=== PATIENT | female | born 1940 | race Two or more races ===

== ENCOUNTER 2017-12-29 07:12 | Outpatient (CLI) | payer OTHER ==
[~2017-12-29 07:12] MED LIST: COMADIN; COZAAR50 MG; NORFLEX100MG PO; PERCOGESIC 3251 EACH PO; ZANAFLEX4 M1 PO
== END 2017-12-29 07:19 | disposition home or self-care (01) ==
LOC: NUCLEAR 07:12
DX: I20.0 Unstable angina (principal); I11.9 Hypertensive heart disease without heart failure; E78.2 Mixed hyperlipidemia
CPT/HCPCS: 78452; 93017; A9500

== ENCOUNTER 2020-11-30 14:28 | Outpatient (CLI) | payer OTHER | END 2020-11-30 14:36 | disposition home or self-care (01) | LOC: LAB 14:28 | PROVIDERS: ATTEND Psychiatry & Neurology Psychiatry | DX: L51.8 Other erythema multiforme (principal); L42 Pityriasis rosea ==

== ENCOUNTER 2021-12-04 14:24 | Outpatient (CLI) | payer OTHER | END 2021-12-04 14:26 | disposition home or self-care (01) | LOC: NUCLEAR 14:24 | PROVIDERS: ATTEND Specialist | DX: I27.20 Pulmonary hypertension, unspecified (principal) ==

== ENCOUNTER 2021-12-04 15:37 | Outpatient (CLI) | payer OTHER | END 2021-12-04 15:44 | disposition home or self-care (01) | LOC: RAD 15:37 | PROVIDERS: ATTEND Specialist | DX: R05.3 Chronic cough (principal) ==

== ENCOUNTER 2023-04-30 10:16 | Inpatient (IN) | payer OTHER ==
[~2023-04-30] VITALS: Ht 177.8 cm; Wt 54.4 kg
[2023-04-30] MEDS ORDERED: WARFARIN SODIUM2 MG PO (10:38)
[2023-05-03] MEDS ORDERED: POLY119PG PO (18:03)
[2023-05-03] MEDS ORDERED: MAGNESIUM400 MG PO (18:03)
== END 2023-05-04 07:13 | disposition home or self-care (01) | DRG 389 ==
LOC: ER 10:16 → SURH 19:27
PROVIDERS: Emergency Medicine; ADMIT Internal Medicine; ATTEND Internal Medicine
PROC: BW21YZZ Computerized Tomography (CT Scan) of Abdomen and Pelvis using Other Contrast (ICD-10-PCS; principal; 2023-04-30)
DX: K56.699 Other intestinal obstruction unspecified as to partial versus complete obstruction (principal); D68.62 Lupus anticoagulant syndrome; I10 Essential (primary) hypertension; Z79.01 Long term (current) use of anticoagulants

== ENCOUNTER → 2023-05-26 | Outpatient (CLI) | payer OTHER ==
[~2023-05-26] MED LIST changes: +MAGNESIUM400 MG PO; +POLY119PG PO; +WARFARIN SODIUM2 MG PO
== END | disposition home or self-care (01) ==
LOC: RX STUDY 07:39
DX: K56.609 Unspecified intestinal obstruction, unspecified as to partial versus complete obstruction (principal)

== ENCOUNTER 2024-12-13 11:39 | Emergency (ER) | payer OTHER ==
[~2024-12-13] VITALS: Ht 152.4 cm; Wt 46.7 kg
[2024-12-13] MEDS ORDERED: XARELTO10 MG (11:45)
[2024-12-13] MEDS ORDERED: NEURONTIN300 MG (11:46)
[2024-12-13] MEDS ORDERED: FAMOTIDINE/PF 20 MG in 0.9 % SODIUM CHLORIDE 8 ML IV PUSH STA (12:38)
[2024-12-13] MEDS ORDERED: ONDANSETRON HCL 2 MG/ML VIAL IV ONE (12:45)
[2024-12-13] MEDS ORDERED: KETOROLAC TROMETHAMINE 30 MG VIAL IV ONE (12:45)
[2024-12-13] MEDS ORDERED: 0.9 % SODIUM CHLORIDE 1,000 ML IV SCH (12:45)
[2024-12-13] MEDS ORDERED: DIPHENOXYLATE HCL/ATROPINE 1 UDTAB TABLET PO ONE (12:45)
[2024-12-13] MEDS ORDERED: KETOROLAC TROMETHAMINE 30 MG VIAL ONE (13:25)
[2024-12-13] MEDS ORDERED: FAMOTIDINE/PF 20 MG/2 ML VIAL ONE (13:25)
[2024-12-13] MEDS ORDERED: ONDANSETRON HCL 2 MG/ML VIAL ONE (13:25)
[2024-12-13 13:43] LABS: HEMATOCRIT 41.4 % (36.0-45.00); HEMOGLOBIN 14.1 g/dL (12.0-15.00); MEAN CELL VOLUME 96.2 fL (80.00-100.00); MEAN CORPUSCULAR HEMOGLOBIN 32.6 pg (27.00-32.0); MEAN CORPUSCULAR HGB CONC 33.9 g/dl (32.0-36.0); PLATELET COUNT 176 K/uL (150-450); RED BLOOD COUNT 4.31 M/uL (4.00-6.00); RED CELL DISTRIBUTION WIDTH 13.1 % (11.5-14.5)
[2024-12-13] MEDS ORDERED: METHYLPREDNISOLONE SOD SUCC 125 MG VIAL ONE (15:05)
[2024-12-13] MEDS ORDERED: WATER FOR INJ.,BACTERIOSTATIC 30 ML VIAL IJ ONE (15:06)
[2024-12-13] MEDS ORDERED: METHYLPREDNISOLONE SOD SUCC 125 MG VIAL IV ONE (15:15)
[2024-12-13 15:45] LABS: ALBUMIN 4.5 gm/dL (3.4-5.0); BILIRUBIN TOTAL 1.67 mg/dL (0.3-1.2); CREATININE SERUM 0.82 mg/dL (0.55-1.02); GFR 66.74; GLOBULINA 3.4 G/DL (2.4-3.5); POTASSIUM 4.5 mEq/L (3.5-5.1); TOTAL PROTEIN 7.9 gm/dL (6.4-8.2)
[2024-12-13] MEDS ORDERED: METRONIDAZOLE500 MG PO (16:05)
[2024-12-13] MEDS ORDERED: INTESTINEX680 M1 PO (16:05)
[2024-12-13] MEDS ORDERED: PROTONIX40 MG PO (16:05)
[2024-12-13] MEDS ORDERED: LEVSIN/SL0.125 MG SL (16:05)
[2024-12-13] MEDS ORDERED: CIPRO500 MG PO (16:05)
== END 2024-12-13 17:12 | disposition home or self-care (01) ==
LOC: ER 11:40
PROVIDERS: General Practice
DX: K52.9 Noninfective gastroenteritis and colitis, unspecified (principal); R11.2 Nausea with vomiting, unspecified; R10.32 Left lower quadrant pain; I10 Essential (primary) hypertension
CPT/HCPCS: 36415; 74176; 96365; 96366; 99284; J1885; J2405; J3490 ×2; J7030

== ENCOUNTER 2025-05-22 12:27 | Emergency (ER) | payer OTHER ==
[~2025-05-22] VITALS: Ht 165.1 cm; Wt 48.5 kg
[~2025-05-22 12:27] MED LIST changes: +CIPRO500 MG PO; +INTESTINEX680 M1 PO; +LEVSIN/SL0.125 MG SL; +METRONIDAZOLE500 MG PO; +NEURONTIN300 MG; +PROTONIX40 MG PO; +XARELTO10 MG
[2025-05-22] MEDS ORDERED: 0.9 % SODIUM CHLORIDE 1,000 ML IV SCH (13:30)
[2025-05-22 14:03] LABS: BASO % 0.2 % (0.1-1.2); EOS # 0.14 (0.04-0.54); EOS % 2.2 % (0.7-7.0); LYMPH # 1.03 (1.18-3.74); LYMPH % 16.0 % (19.3-53.1); MEAN PLATELET VOLUME 11.10 fl (9.4-12.4); MONO # 0.33 (0.24-0.82); MONO % 5.1 % (4.7-12.5); NEUT # 4.93 (1.56-6.13); NEUT % 76.3 % (34.0-71.1); RED CELL DISTRIBUTION WIDTH 12.5 % (11.6-14.4)
[2025-05-22 14:20] LABS: BUN CREA RATIO 27.0 (7.0-25.0); CREATININE SERUM 1.07 mg/dL (0.55-1.02); GFR 49.09; GLUCOSE FASTING 82.0 mg/dL (65-100); OSMOLALITY SERUM 286.0 MOSM/KG (275-295)
[2025-05-22 14:44] LABS: URINE APPEARANCE Clear; URINE BILIRRUBIN Negative (NEGATIVE); URINE BLOOD Negative; URINE COLOR Yellow; URINE GLUCOSE Negative (NEGATIVE); URINE KETONE Trace (NEGATIVE); URINE LEUKOCYTE Negative; URINE NITRATE Negative; URINE PROTEIN Negative (NEGATIVE); URINE UROBILINOGEN 0.2 E.U./dl
[2025-05-22 14:49] LABS: URINE BACTERIA 13.1 uL (0.0-1933); URINE CAST 3.22 uL (0.0-1.40); URINE EPITHELIAL CELLS 6.3 uL (0.0-38.8); URINE RBC 7.7 uL (0.0-20.8); URINE WBC 3.2 uL (0.0-23.2)
[2025-05-22] MEDS ORDERED: KETOROLAC TROMETHAMINE 30 MG VIAL IV STA (19:49)
[2025-05-22] MEDS ORDERED: KETOROLAC TROMETHAMINE 30 MG VIAL ONE (19:51)
[2025-05-22] MEDS ORDERED: HYOSCYAMINE SULFATE 0.125 MG TAB.SUBL ONE (19:51)
[2025-05-22] MEDS ORDERED: FAMOTIDINE/PF 20 MG/2 ML VIAL ONE (19:52)
[2025-05-22] MEDS ORDERED: FAMOtidine 10 MG/ML (4ML VIAL) IV PUSH STA (19:53)
[2025-05-22] MEDS ORDERED: HYOSCYAMINE SULFATE 0.125 MG TAB.SUBL SL ONE (20:00)
== END 2025-05-22 20:48 | disposition home or self-care (01) ==
LOC: ER 12:27
PROVIDERS: Emergency Medicine
DX: R10.9 Unspecified abdominal pain (principal)
CPT/HCPCS: 36415; 74177; 96365; 96366; 99284; J1885; J3490; J7030; Q9965